=== PATIENT | male | born 1945 | race Caucasian/White ===

== ENCOUNTER 2019-07-25 16:28 | Inpatient (IN) | payer MEDICARE, MEDICAID, SELFPAY ==
[2019-07-25] VITALS (46 sets, daily range): BP systolic 102–130; BP diastolic 72–93; PULSE 91–144; RESP 7–32; TEMP 36.6–36.8; O2SAT 82–99; BMI 14.5
--- NOTE | 2019-07-25 16:33 | ED_ITS ---
Entered by Ruben King, acting as scribe for Tameka Slater HPI - SOB/Dyspnea General: Stated Complaint: WEAKNESS Time Seen by Provider: 07/25/19 16:32 Coding Level of Care Code ED First Helper for Paco Mosquera
--- NOTE | 2019-07-25 16:33 | W.ED.SOB ---
HPI - SOB/Dyspnea General: Stated Complaint: WEAKNESS Time Seen by Provider: 07/25/19 16:32 Coding Level of Care Code ED Web Solutions Architect for Paco Mosquera
--- NOTE | 2019-07-25 16:38 | ED_ITS ---
Entered by Ruben King, acting as scribe for Tameka Slater Documented by User: Tameka Slater 07/25/19 18:00 HPI - Fall General: Chief Complaint: Fall Stated Complaint: WEAKNESS Time Seen by Provider: 07/25/19 16:32 History of Present Illness: HPI Narrative: 74 yo male presents with fall. Pt states that he is short of breath. Family member states that pt isn't eating and has lost a lot of weight. Pt states that this all started on the 4th of this month. Pt states that he has abdomen pain that started about 2 weeks ago. Pt states that he has had vomiting and diarrhea. MD complaint: fall Place fall occurred: home Loss of consciousness: None Prolonged down time: no Associated symptoms-after fall: Reports abdominal pain and weakness; Denies chest pain, confusion, difficulty walking, headache(s), hematuria, neck pain or vertigo Review of Systems General: Reports: other (negative unless marked) Const: Denies: fever, chills, body aches, fatigue, malaise or diaphoresis Eyes: Denies: change in vision or blurry vision ENMT: Denies: throat pain, painful swallowing, hoarseness, ear pain, ear discharge, Change in hearing or nasal discharge Card: Denies: chest pain, palpitations, irregular heart rhythm, syncope, pre- syncope, shortness of breath on exertion or shortness of breath when lying down Resp: Reports: shortness of breath and wheezing; Denies: productive cough, non-productive cough, coughing up blood or chest co ngestion GI: Reports: abdominal pain : Denies: flank pain, difficulty urinating, painful urination, urinary frequency, urinary urgency, decreased urine ouput, urinary incontinence or blood in urine Musc: Denies: neck pain, back pain, extremity pain, extremity swelling, joint pain, joint swelling, joint warmth or joint stiffness Skin/Breast: Denies: rash, skin tenderness or yellow skin Neuro: Denies: headache, numbness in extremities, weakness in extremities, changes in sensation, lack of coordination, difficulty walking, dizziness, vertigo or confusion Endo: Denies: excessive thirst, tired all the time, cold intolerance, excessive sweating, flushing or hot flashes Osmani/Lymph: Denies: easy bruising, easy bleeding, petechiae or enlarged lymph nodes All/Imm: Denies: hives, throat swelling, tongue swelling, facial swelling or acute wheezing PFSH ED PFSH: Statuses (acute, chronic, etc) shown below reflect problem list status as previously entered and may not be historically accurate Medical History Afib (Acute) CAD (coronary artery disease) (Acute) CHF (congestive heart failure) (Acute) Heart valve disease (Acute) Hypertension (Acute) Peripheral arterial disease (Acute) Surgical History History of bilateral carotid endarterectomy (Acute) Hx of CABG (Acute) Family History (Updated 07/25/19 @ 19:36 by Manuel Roach MD) Other CAD (coronary artery disease) Cancer Diabetes Social History (Updated 07/25/19 @ 21:54 by Manuel Roach MD) Smoking and tobacco status: current every day smoker Alcohol intake: never Lives independently: Yes Housing: House Physical Exam Const: COMMON NORMALS: no apparent distress, oriented x3 and no limitations; negative for healthy appearing and negative for well nourished EXAM LIMITATIONS: no altered mental status GENERAL APPEARANCE: cooperative, well kempt and well developed ORIENTATION/CONSCIOUSNESS: Yes awake HENMT: COMMON NORMALS: normocephalic, head/scalp atraumatic, hearing grossly normal bilaterally, external ears normal, EAC's normal, external nose normal and moist oral mucous membranes HEAD & SCALP: normal to inspection, normocephalic and atraumatic FACE & SINUS: normal facial exam and face symmetric NOSE: external nose normal and nares normal EXTERNAL EAR: Yes external ears normal EXTERNAL AUDITORY CANAL: EAC's normal MOUTH: oral and palatal mucosa normal and tongue normal Eye: COMMON NORMALS: PERRL, EOMs intact bilaterally, conjunctivae normal and no scleral icterus GENERAL EYE: normal appearance of both eyes and normal light reflex CONJUNCTIVA: Yes conjunctivae normal SCLERA: sclerae normal CORNEA: Yes corneas normal PUPIL: Yes PERRL DIRECT OPHTHALMOSCOPY: Yes normal light reflex Neck/C-Spine: COMMON NORMALS: full ROM, no lymphadenopathy, supple, no meningeal signs and no JVD GENERAL: Yes normal visual inspection and Yes trachea midline CERVICAL SPINE: Yes cervical ROM normal Chest: COMMONS NORMALS: inspection of chest normal and palpation of chest normal Resp: COMMON NORMALS: normal respiratory effort, no retractions and clear to auscultation bilaterally EFFORT & INSPECTION: Yes able to speak in complete sentences AUSCULTATION: clear to auscultation bilaterally, rhonchi and wheezes Cardio: COMMON NORMALS: no JVD, regular rate, regular rhythm, S1 normal heart sound, S2 normal heart sound, no gallops, no clicks, no murmurs and no rub JUGULAR VENOUS DISTENTION: no JVD RATE: regular rate RHYTHM: regular rhythm HEART SOUNDS: S1 normal and S2 normal GI: COMMON NORMALS: soft to palpation, non-tender, no hepatosplenomegaly and no masses INSPECTION: Yes normal to inspection PALPATION: Yes soft and Yes no hepatosplenomegaly : COMMON NORMALS: Yes no CVA tenderness BLADDER/KIDNEY EXAM: Yes no CVA tenderness Back/Pelvis: COMMON NORMALS: no CVA tenderness, thoracic and lumbar spine normal to inspection, no thoracic nor lumbar tenderness and thoraco-lumbar ROM normal Extremity: COMMON NORMALS: normal to inspection, full ROM, normal capillary refill, no joint enlargement, no clubbing, cyanosis or edema and no calf tenderness Neuro: COMMON NORMALS: oriented x3, CN's II-XII intact bilaterally, moves all extremities, no focal motor deficits and no sensory deficits noted MENINGEAL SIGNS: Yes no meningeal signs Psych: COMMON NORMALS: mental status grossly normal, thought process normal, cooperative, affect normal, speech normal and activity/motor behavior normal APPEARANCE: Yes well kempt SPEECH: Yes normal speech THOUGHT PROCESS: normal thought process Skin: COMMON NORMALS: no rashes or lesions noted, skin turgor normal, no jaundice, no petechiae and no mottling GENERAL SKIN EXAM: no rashes or lesions noted and turgor normal Course Vital Signs: Vital signs: Vital Signs Temperature 98.2 F 07/25/19 22:05 Pulse Rate 93 07/26/19 02:00 Respiratory Rate 7 L 07/26/19 02:00 Blood Pressure 107/79 07/26/19 02:00 Pulse Oximetry 97 07/26/19 02:00 MDM - Fall MDM Narrative: Medical decision making narrative: Mr. James is a very nice 74-year-old male who comes in with shortness of breath, tachycardia and abdominal pain. Patient is being treated for his rapid A. fib and we will also have a CT performed of chest and pelvis to rule out pulmonary embolism. The patient agrees to further evaluation. Case to be turned over to Dr. Lou at change of shift. Lab Data: Attestation: I reviewed the patient's lab results. Labs: Lab Results 07/25/19 07/25/19 07/25/19 Range/Units 16:36 16:36 16:36 WBC 6.8 (4.0-10.0) 10^3/ uL RBC 4.16 (4.1-5.3) 10^6/u L Hgb 13.4 (11.7-16.6) g/dL Hct 40.4 L (42.0-52.0) % MCV 97.1 H (80-94) fL MCH 32.2 (28.0-34.0) pg MCHC 33.2 (30.0-36.0) g/dL RDW 15.6 H (12.1-15.1) % Plt Count 148 (130-400) 10^3/c mm MPV 11.6 H (7.4-10.4) fL Neut % (Auto) 72.7 % Lymph % (Auto) 11.7 % Burke % (Auto) 13.5 % Eos % (Auto) 1.2 % Baso % (Auto) 0.6 % Neut # (Auto) 5.0 (1.8-7.7) 10^3/u L Lymph # (Auto) 0.8 (0.8-4.8) 10^3/u L Burke # (Auto) 0.9 (0.2-0.9) 10^3/u L Eos # (Auto) 0.1 (0.0-0.8) 10^3/u L Baso # (Auto) 0.0 (0.0-0.1) 10^3/u L Nucleated RBC % (a uto) 0 % Nucleated RBCs # 0.0 /100WBC PT 12.00 (10.5-13.3) SECO NDS INR 0.86 (0.8-1.2) D-Dimer (0-0.59) ug/mIFE U Specimen Type ABG pH (7.35-7.45) ABG pCO2 (35-45) mmHg ABG pO2 (80.0-100.0) mmH g ABG HCO3 (22-26) mmol/L ABG Base Excess (-2.0-2.0) mmol/ L Malachi Test Hematocrit (42-52) % O2 Delivery Device FiO2 % Cad Intern ID Sodium 139 (136-145) mmol/L Potassium 3.8 (3.5-5.1) mmol/L Chloride 98 (98-107) mmol/L Carbon Dioxide 26 (22-29) mmol/L Anion Gap 18.8 (5-19) BUN 18 (8-23) mg/dL Creatinine 0.9 (0.7-1.2) mg/dL Glucose 126 H (74-106) mg/dL Lactic Acid (0.5-2.2) mmol/L Calcium 10.2 (8.5-10.5) mg/dL Total Bilirubin 3.1 H (0.15-1.2) mg/dL AST 77 H (0-40) U/L ALT 52 H (0-41) U/L Alkaline Phosphata se 510 H (40-130) IU/L Troponin T Baselin e (0-15) ng/mL Troponin T 120 Min gissel (0-15) ng/mL Delta Troponin T (0-10) ABS# NT-Pro-B Natriuret Pep 4224 H (0-125) pg/mL Total Protein 7.3 (6.6-8.7) g/dL Albumin 3.7 (3.5-5.2) g/dL Globulin 3.6 (1.3-4.6) g/dL Lipase 36 (13-60) U/L Influenza Type A A g (Negative) POC Influenza B Ag (Negative) 07/25/19 07/25/19 07/25/19 Range/Units 16:36 16:36 16:58 WBC (4.0-10.0) 10^3/ uL RBC (4.1-5.3) 10^6/u L Hgb (11.7-16.6) g/dL Hct (42.0-52.0) % MCV (80-94) fL MCH (28.0-34.0) pg MCHC (30.0-36.0) g/dL RDW (12.1-15.1) % Plt Count (130-400) 10^3/c mm MPV (7.4-10.4) fL Neut % (Auto) % Lymph % (Auto) % Burke % (Auto) % Eos % (Auto) % Baso % (Auto) % Neut # (Auto) (1.8-7.7) 10^3/u L Lymph # (Auto) (0.8-4.8) 10^3/u L Burke # (Auto) (0.2-0.9) 10^3/u L Eos # (Auto) (0.0-0.8) 10^3/u L Baso # (Auto) (0.0-0.1) 10^3/u L Nucleated RBC % (a uto) % Nucleated RBCs # /100WBC PT (10.5-13.3) SECO NDS INR (0.8-1.2) D-Dimer 5.10 H (0-0.59) ug/mIFE U Specimen Type Arterial ABG pH 7.59 H* (7.35-7.45) ABG pCO2 23.6 L (35-45) mmHg ABG pO2 96.8 (80.0-100.0) mmH g ABG HCO3 22.4 (22-26) mmol/L ABG Base Excess 2.1 H (-2.0-2.0) mmol/ L Malachi Test Pos Hematocrit 41.1 L (42-52) % O2 Delivery Device Room air FiO2 21.0 % Cad Intern ID monro Sodium (136-145) mmol/L Potassium (3.5-5.1) mmol/L Chloride (98-107) mmol/L Carbon Dioxide (22-29) mmol/L Anion Gap (5-19) BUN (8-23) mg/dL Creatinine (0.7-1.2) mg/dL Glucose (74-106) mg/dL Lactic Acid (0.5-2.2) mmol/L Calcium (8.5-10.5) mg/dL Total Bilirubin (0.15-1.2) mg/dL AST (0-40) U/L ALT (0-41) U/L Alkaline Phosphata se (40-130) IU/L Troponin T Baselin e 182 H* (0-15) ng/mL Troponin T 120 Min gissel (0-15) ng/mL Delta Troponin T (0-10) ABS# NT-Pro-B Natriuret Pep (0-125) pg/mL Total Protein (6.6-8.7) g/dL Albumin (3.5-5.2) g/dL Globulin (1.3-4.6) g/dL Lipase (13-60) U/L Influenza Type A A g (Negative) POC Influenza B Ag (Negative) 07/25/19 07/25/19 07/25/19 Range/Units 17:04 17:16 18:20 WBC (4.0-10.0) 10^3/ uL RBC (4.1-5.3) 10^6/u L Hgb (11.7-16.6) g/dL Hct (42.0-52.0) % MCV (80-94) fL MCH (28.0-34.0) pg MCHC (30.0-36.0) g/dL RDW (12.1-15.1) % Plt Count (130-400) 10^3/c mm MPV (7.4-10.4) fL Neut % (Auto) % Lymph % (Auto) % Burke % (Auto) % Eos % (Auto) % Baso % (Auto) % Neut # (Auto) (1.8-7.7) 10^3/u L Lymph # (Auto) (0.8-4.8) 10^3/u L Burke # (Auto) (0.2-0.9) 10^3/u L Eos # (Auto) (0.0-0.8) 10^3/u L Baso # (Auto) (0.0-0.1) 10^3/u L Nucleated RBC % (a uto) % Nucleated RBCs # /100WBC PT (10.5-13.3) SECO NDS INR (0.8-1.2) D-Dimer (0-0.59) ug/mIFE U Specimen Type ABG pH (7.35-7.45) ABG pCO2 (35-45) mmHg ABG pO2 (80.0-100.0) mmH g ABG HCO3 (22-26) mmol/L ABG Base Excess (-2.0-2.0) mmol/ L Malachi Test Hematocrit (42-52) % O2 Delivery Device FiO2 % Cad Intern ID Sodium (136-145) mmol/L Potassium (3.5-5.1) mmol/L Chloride (98-107) mmol/L Carbon Dioxide (22-29) mmol/L Anion Gap (5-19) BUN (8-23) mg/dL Creatinine (0.7-1.2) mg/dL Glucose (74-106) mg/dL Lactic Acid 2.0 (0.5-2.2) mmol/L Calcium (8.5-10.5) mg/dL Total Bilirubin (0.15-1.2) mg/dL AST (0-40) U/L ALT (0-41) U/L Alkaline Phosphata se (40-130) IU/L Troponin T Baselin e (0-15) ng/mL Troponin T 120 Min gissel 171.60 H (0-15) ng/mL Delta Troponin T -10.40 L (0-10) ABS# NT-Pro-B Natriuret Pep (0-125) pg/mL Total Protein (6.6-8.7) g/dL Albumin (3.5-5.2) g/dL Globulin (1.3-4.6) g/dL Lipase (13-60) U/L Influenza Type A A g Negative (Negative) POC Influenza B Ag Negative (Negative) EKG Data^: EKG 1: Attestation: I personally reviewed and interpreted this EKG as follows: EKG interpretation date: 07/25/19 EKG interpretation time: 17:22 Interpretation: Atrial flutter at 142 beats a minute, nonspecific ST-T wave changes, normal axis. Unchanged from previous Discharge Plan Discharge Patient Disposition: Admitted As Inpatient Admit Provider: Manuel Roach Discharge Date/Time: 07/25/19 21:43 Sign Out Sign Out Data: Patient Sign Out occurred on 07/25/19 at 18:29. Patient's care was discussed, and care was transferred from to Breezy Lou DO. Coding Level of Care Code ED Ecological Economist for Chg Fwd Exam Problem Focused Documented by User: Breezy Lou, 07/26/19 04:19 HPI - Fall General: Chief Complaint: Fall Stated Complaint: WEAKNESS Time Seen by Provider: 07/25/19 16:32 [facility] ED PFSH: Statuses (acute, chronic, etc) shown below reflect problem list status as previously entered and may not be historically accurate Medical History Afib (Acute) CAD (coronary artery disease) (Acute) CHF (congestive heart failure) (Acute) Heart valve disease (Acute) Hypertension (Acute) Peripheral arterial disease (Acute) Surgical History History of bilateral carotid endarterectomy (Acute) Hx of CABG (Acute) Family History (Updated 07/25/19 @ 19:36 by Manuel Roach MD) Other CAD (coronary artery disease) Cancer Diabetes Social History (Updated 07/25/19 @ 21:54 by Manuel Roach MD) Smoking and tobacco status: current every day smoker Alcohol intake: never Lives independently: Yes Housing: House Course ED course: 74-year-old male checked out to me by Dr. Watson. He continues to have elevated heart rates despite multiple doses of diltiazem, with a diltiazem drip. 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 He will go to the ICU given his heart rate and need for antiarrhythmic drip. Vital Signs: Vital signs: Vital Signs Temperature 98.2 F 07/25/19 22:05 Pulse Rate 93 07/26/19 02:00 Respiratory Rate 7 L 07/26/19 02:00 Blood Pressure 107/79 07/26/19 02:00 Pulse Oximetry 97 07/26/19 02:00 MDM - Fall Lab Data: Labs: Lab Results 07/25/19 07/25/19 07/25/19 Range/Units 16:36 16:36 16:36 WBC 6.8 (4.0-10.0) 10^3/ uL RBC 4.16 (4.1-5.3) 10^6/u L Hgb 13.4 (11.7-16.6) g/dL Hct 40.4 L (42.0-52.0) % MCV 97.1 H (80-94) fL MCH 32.2 (28.0-34.0) pg MCHC 33.2 (30.0-36.0) g/dL RDW 15.6 H (12.1-15.1) % Plt Count 148 (130-400) 10^3/c mm MPV 11.6 H (7.4-10.4) fL Neut % (Auto) 72.7 % Lymph % (Auto) 11.7 % Burke % (Auto) 13.5 % Eos % (Auto) 1.2 % Baso % (Auto) 0.6 % Neut # (Auto) 5.0 (1.8-7.7) 10^3/u L Lymph # (Auto) 0.8 (0.8-4.8) 10^3/u L Burke # (Auto) 0.9 (0.2-0.9) 10^3/u L Eos # (Auto) 0.1 (0.0-0.8) 10^3/u L Baso # (Auto) 0.0 (0.0-0.1) 10^3/u L Nucleated RBC % (a uto) 0 % Nucleated RBCs # 0.0 /100WBC PT 12.00 (10.5-13.3) SECO NDS INR 0.86 (0.8-1.2) D-Dimer (0-0.59) ug/mIFE U Specimen Type ABG pH (7.35-7.45) ABG pCO2 (35-45) mmHg ABG pO2 (80.0-100.0) mmH g ABG HCO3 (22-26) mmol/L ABG Base Excess (-2.0-2.0) mmol/ L Malachi Test Hematocrit (42-52) % O2 Delivery Device FiO2 % Cad Intern ID Sodium 139 (136-145) mmol/L Potassium 3.8 (3.5-5.1) mmol/L Chloride 98 (98-107) mmol/L Carbon Dioxide 26 (22-29) mmol/L Anion Gap 18.8 (5-19) BUN 18 (8-23) mg/dL Creatinine 0.9 (0.7-1.2) mg/dL Glucose 126 H (74-106) mg/dL Lactic Acid (0.5-2.2) mmol/L Calcium 10.2 (8.5-10.5) mg/dL Total Bilirubin 3.1 H (0.15-1.2) mg/dL AST 77 H (0-40) U/L ALT 52 H (0-41) U/L Alkaline Phosphata se 510 H (40-130) IU/L Troponin T Baselin e (0-15) ng/mL Troponin T 120 Min gissel (0-15) ng/mL Delta Troponin T (0-10) ABS# NT-Pro-B Natriuret Pep 4224 H (0-125) pg/mL Total Protein 7.3 (6.6-8.7) g/dL Albumin 3.7 (3.5-5.2) g/dL Globulin 3.6 (1.3-4.6) g/dL Lipase 36 (13-60) U/L Influenza Type A A g (Negative) POC Influenza B Ag (Negative) 07/25/19 07/25/19 07/25/19 Range/Units 16:36 16:36 16:58 WBC (4.0-10.0) 10^3/ uL RBC (4.1-5.3) 10^6/u L Hgb (11.7-16.6) g/dL Hct (42.0-52.0) % MCV (80-94) fL MCH (28.0-34.0) pg MCHC (30.0-36.0) g/dL RDW (12.1-15.1) % Plt Count (130-400) 10^3/c mm MPV (7.4-10.4) fL Neut % (Auto) % Lymph % (Auto) % Burke % (Auto) % Eos % (Auto) % Baso % (Auto) % Neut # (Auto) (1.8-7.7) 10^3/u L Lymph # (Auto) (0.8-4.8) 10^3/u L Burke # (Auto) (0.2-0.9) 10^3/u L Eos # (Auto) (0.0-0.8) 10^3/u L Baso # (Auto) (0.0-0.1) 10^3/u L Nucleated RBC % (a uto) % Nucleated RBCs # /100WBC PT (10.5-13.3) SECO NDS INR (0.8-1.2) D-Dimer 5.10 H (0-0.59) ug/mIFE U Specimen Type Arterial ABG pH 7.59 H* (7.35-7.45) ABG pCO2 23.6 L (35-45) mmHg ABG pO2 96.8 (80.0-100.0) mmH g ABG HCO3 22.4 (22-26) mmol/L ABG Base Excess 2.1 H (-2.0-2.0) mmol/ L Malachi Test Pos Hematocrit 41.1 L (42-52) % O2 Delivery Device Room air FiO2 21.0 % Cad Intern ID monro Sodium (136-145) mmol/L Potassium (3.5-5.1) mmol/L Chloride (98-107) mmol/L Carbon Dioxide (22-29) mmol/L Anion Gap (5-19) BUN (8-23) mg/dL Creatinine (0.7-1.2) mg/dL Glucose (74-106) mg/dL Lactic Acid (0.5-2.2) mmol/L Calcium (8.5-10.5) mg/dL Total Bilirubin (0.15-1.2) mg/dL AST (0-40) U/L ALT (0-41) U/L Alkaline Phosphata se (40-130) IU/L Troponin T Baselin e 182 H* (0-15) ng/mL Troponin T 120 Min gissel (0-15) ng/mL Delta Troponin T (0-10) ABS# NT-Pro-B Natriuret Pep (0-125) pg/mL Total Protein (6.6-8.7) g/dL Albumin (3.5-5.2) g/dL Globulin (1.3-4.6) g/dL Lipase (13-60) U/L Influenza Type A A g (Negative) POC Influenza B Ag (Negative) 07/25/19 07/25/19 07/25/19 Range/Units 17:04 17:16 18:20 WBC (4.0-10.0) 10^3/ uL RBC (4.1-5.3) 10^6/u L Hgb (11.7-16.6) g/dL Hct (42.0-52.0) % MCV (80-94) fL MCH (28.0-34.0) pg MCHC (30.0-36.0) g/dL RDW (12.1-15.1) % Plt Count (130-400) 10^3/c mm MPV (7.4-10.4) fL Neut % (Auto) % Lymph % (Auto) % Burke % (Auto) % Eos % (Auto) % Baso % (Auto) % Neut # (Auto) (1.8-7.7) 10^3/u L Lymph # (Auto) (0.8-4.8) 10^3/u L Burke # (Auto) (0.2-0.9) 10^3/u L Eos # (Auto) (0.0-0.8) 10^3/u L Baso # (Auto) (0.0-0.1) 10^3/u L Nucleated RBC % (a uto) % Nucleated RBCs # /100WBC PT (10.5-13.3) SECO NDS INR (0.8-1.2) D-Dimer (0-0.59) ug/mIFE U Specimen Type ABG pH (7.35-7.45) ABG pCO2 (35-45) mmHg ABG pO2 (80.0-100.0) mmH g ABG HCO3 (22-26) mmol/L ABG Base Excess (-2.0-2.0) mmol/ L Malachi Test Hematocrit (42-52) % O2 Delivery Device FiO2 % Cad Intern ID Sodium (136-145) mmol/L Potassium (3.5-5.1) mmol/L Chloride (98-107) mmol/L Carbon Dioxide (22-29) mmol/L Anion Gap (5-19) BUN (8-23) mg/dL Creatinine (0.7-1.2) mg/dL Glucose (74-106) mg/dL Lactic Acid 2.0 (0.5-2.2) mmol/L Calcium (8.5-10.5) mg/dL Total Bilirubin (0.15-1.2) mg/dL AST (0-40) U/L ALT (0-41) U/L Alkaline Phosphata se (40-130) IU/L Troponin T Baselin e (0-15) ng/mL Troponin T 120 Min gissel 171.60 H (0-15) ng/mL Delta Troponin T -10.40 L (0-10) ABS# NT-Pro-B Natriuret Pep (0-125) pg/mL Total Protein (6.6-8.7) g/dL Albumin (3.5-5.2) g/dL Globulin (1.3-4.6) g/dL Lipase (13-60) U/L Influenza Type A A g Negative (Negative) POC Influenza B Ag Negative (Negative) Discharge Plan Discharge Patient Disposition: Admitted As Inpatient Admit Provider: Manuel Roach Discharge Date/Time: 07/25/19 21:43 Sign Out Sign Out Data: Patient Sign Out occurred on 07/25/19 at 18:29. Patient's care was discussed, and care was transferred from to Breezy Lou DO. Coding Level of Care Code ED Ecological Economist for Chg Fwd Exam Problem Focused The documentation recorded by the Fernando ortega Kialy, accurately reflects the service I personally performed and the decisions made by Nohemy alejo Eli N Jul 25, 2019 16:28
--- NOTE | 2019-07-25 16:42 | XRR_ITS ---
PROCEDURE INFORMATION: Exam: XR Chest, 1 View Exam date and time: 07/25/2019 4:58 PM Age: 74 years old Clinical indication: Prior surgery; Surgery date: 6+ months; Surgery type: Cabg, valve replacement; Patient HX: Weakness xseveral days, PT is a current smoker; Additional info: Cough TECHNIQUE: Imaging protocol: XR of the chest Views: 1 view. COMPARISON: CR Chest 1 [place] [id number] 07/08/2018 11:58 AM FINDINGS: Lungs: Lungs are severely hyperinflated in keeping with COPD. No new infiltrate is identified. Pleural space: There it be small pleural effusions but these are smaller than on 07/08/2018. Heart/Mediastinum: There is what appears to be a soft tissue mass in the right paratracheal region, however correlation with today's CT scan of the chest shows that this is likely artifact created by superficial soft tissues and the suprasternal notch as there is no mass in this location on the CT scan. There is mild cardiomegaly. There are changes of coronary bypass surgery. Bones/joints: Unremarkable. XR/XR chest 1V portable [id number] IMPRESSION: 1. Severe COPD 2. Decrease in pleural effusions compared with 07/08/2018
--- NOTE | 2019-07-25 16:44 | ECG_ITS ---
Measurements Intervals [place] Rate: 142 P: [place]: 0 QRS: 88 QRSD: 102 T: 0 QT: 208 QTc: 320 ATRIAL FLUTTER/TACHYCARDIA WITH RAPID VENTRICULAR RESPONSE VOLTAGE CRITERIA FOR LVH [MEETS CRITERIA IN ONE OF: R(aVL), S(V1), R(V5), R (V5/V6)+S(V1)] ST DEVIATION AND MODERATE T-WAVE ABNORMALITY, CONSIDER LATERAL ISCHEMIA [-0.1+ mV T WAVE IN I/aVL/V5/V6] INTERPRETATION BASED ON A DEFAULT AGE OF 40 YEARS Compared to ECG 07/08/2018 14:51:24 Left ventricular hypertrophy now present Supraventricular tachycardia no longer present T-wave abnormality still present Possible ischemia still present Electronically Signed On 07-25-2019 18:54:13 EMERGENCY PHYSICIAN by Manuel Haynes M.D. [email or web address]
[2019-07-25 16:57] LABS: Basophils % 0.6 %; Eosinophils # 0.1 10^3/uL (0.0-0.8); Eosinophils % 1.2 %; Hematocrit 40.4 % (42.0-52.0); Hemoglobin 13.4 g/dL (11.7-16.6); Lymphocytes # 0.8 10^3/uL (0.8-4.8); Lymphocytes % 11.7 %; Mean Corpuscular HGB Conc 33.2 g/dL (30.0-36.0); Mean Corpuscular Hemoglobin 32.2 pg (28.0-34.0); Mean Corpuscular Volume 97.1 fL (80-94); Mean Platelet Volume 11.6 fL (7.4-10.4); Monocytes # 0.9 10^3/uL (0.2-0.9); Monocytes % 13.5 %; Neutrophils % 72.7 %; Nucleated Red Blood Cells % 0 %; Platelet Count 148 10^3/cmm (130-400); Red Blood Count 4.16 10^6/uL (4.1-5.3); Red Cell Distribution Width 15.6 % (12.1-15.1); White Blood Count 6.8 10^3/uL (4.0-10.0)
[2019-07-25] MEDS: ondansetron 2 mg/ML SDV 2 mL 4 MG IVP (16:59)
[2019-07-25] MEDS: sodium chloride 0.9% 1,000 ML 100 ML IV (17:00)
[2019-07-25] MEDS: ipratropium-albuterol 3 mL Neb 9 ML INHALATION (17:06)
[2019-07-25 17:07] LABS: INR 0.86 (0.8-1.2)
--- NOTE | 2019-07-25 17:11 | PC.NURSE ---
RT at bedside providing treatments and collecting ABG
[2019-07-25 17:12] LABS: ABG PCO2 23.6 mmHg (35-45); Arterial Blood Gas Hematocrit 41.1 % (42-52); Base Excess ABG 2.1 mmol/L (-2.0-2.0); Blood Gas Allen Test Pos; Blood Gas Sample Type Arterial; HCO3 ABG 22.4 mmol/L (22-26); Oxygen Device ROOM AIR; PO2 ABG 96.8 mmHg (80.0-100.0)
[2019-07-25 17:13] LABS: ABG PH Result 7.59 (7.35-7.45)
[2019-07-25 17:18] LABS: Troponin(5th) Baseline 182 ng/mL (0-15)
[2019-07-25 17:19] LABS: Alanine Aminotransferase 52 U/L (0-41); Albumin Level 3.7 g/dL (3.5-5.2); Alkaline Phosphatase 510 IU/L (40-130); Anion Gap 18.8 (5-19); Aspartate Amino Transferase 77 U/L (0-40); Blood Urea Nitrogen 18 mg/dL (8-23); Calcium 10.2 mg/dL (8.5-10.5); Carbon Dioxide 26 mmol/L (22-29); Chloride 98 mmol/L (98-107); Globulin 3.6 g/dL (1.3-4.6); Glucose 126 mg/dL (74-106); Lipase 36 U/L (13-60); NT Pro B Type Natriuretic Pept 4224 pg/mL (0-125); Potassium 3.8 mmol/L (3.5-5.1); Sodium 139 mmol/L (136-145); Total Bilirubin 3.1 mg/dL (0.15-1.2); Total Protein 7.3 g/dL (6.6-8.7)
--- NOTE | 2019-07-25 17:24 | CTR_ITS ---
PROCEDURE INFORMATION: Exam: CT Angiography Chest With Contrast Exam date and time: 07/25/2019 5:27 PM Age: 74 years old Clinical indication: Abdominal pain; Acute; Chest pain; Type not specified; Prior surgery; Surgery date: 6+ months; Surgery type: Cabg, valve replacement; Additional info: Chest pain/sob TECHNIQUE: Imaging protocol: Computed tomographic angiography of the chest with intravenous contrast. 3D rendering: MIP and/or 3D reconstructed images were created by the technologist. Total DLP: 1088.91 mGy-cm Radiation optimization: All CT scans at this facility use at least one of these dose optimization techniques: automated exposure control; mA and/or kV adjustment per patient size (includes targeted exams where dose is matched to clinical indication); or iterative reconstruction. Contrast material: OMNI 350; Contrast volume: 95 ml; Contrast route: 18G; COMPARISON: CT chest w con* [id number] 07/02/2018 2:40 PM FINDINGS: Pulmonary arteries: There is no evidence of filling defects within the pulmonary arterial circulation to suggest pulmonary embolism. Aorta: Atherosclerotic calcifications are seen in the aortic arch without evidence for aneurysm. The aorta is not well opacified on this examination as this was done as a pulmonary angiogram study. Lungs: There is centrilobular and extensive paraseptal emphysema with an apical predominance not significantly changed from 07/02/2018. There is some mild dependent atelectasis at the left lung base and also some scarring in the lingula. There are 2 left upper lobe nonspecific nodules measuring 4 and 6 mm not significantly changed from 07/02/2018. There are 2 right upper lobe nodules measuring around 3 mm each and 5 peripheral right lower lobe nodules measuring around 4 mm which are not seen on the previous examination, probably due to the presence of atelectasis and other pathology which may have obscured them. There also two 4 mm sized nodules in the right middle lobe. While these are likely due to granulomatous disease, given the findings on the abdominal CT scan reported below one could not exclude metastatic lesions. Further evaluation or short-term follow-up should be based on the results of evaluation of the patient's abdominal pathology. There is some right basilar atelectasis and ground-glass opacity which is improved compared with 07/02/2018. Pleural space: There is a small right pleural effusion. There are nonspecific calcified pleural plaques anteriorly on the left not changed from previous. Heart: Sternotomy wires and mediastinal surgical clips are present, consistent with previous coronary arterial bypass grafting. The heart is moderately enlarged. There is also left atrial enlargement. There are findings of TAVR. Lymph nodes: Unremarkable. No enlarged lymph nodes. Bones/joints: Unremarkable. No acute fracture. Soft tissues: Unremarkable. IMPRESSION: 1. No evidence of pulmonary embolism 2. Severe COPD 3. Bilateral pulmonary nodules which are unchanged on the left and indeterminate on the right. Further evaluation or short-term follow-up should be based on the results of evaluation of the abdominal pathology. 4. Cardiomegaly with left atrial enlargement not significantly changed 5. Small bilateral pleural effusions more on the right than on the left 6. Mild atelectasis and ground-glass opacity in the dependent portions of the right lower lobe improved compared with previous PROCEDURE INFORMATION: Exam: CT Abdomen And Pelvis With Contrast Exam date and time: 07/25/2019 5:27 PM Age: 74 years old Clinical indication: Abdominal pain; Acute; Chest pain; Type not specified; Prior surgery; Surgery date: 6+ months; Surgery type: Cabg, valve replacement; Additional info: Chest pain/sob TECHNIQUE: Imaging protocol: Computed tomography of the abdomen and pelvis with intravenous contrast. Total DLP: 1088.91 mGy-cm Radiation optimization: All CT scans at this facility use at least one of these dose optimization techniques: automated exposure control; mA and/or kV adjustment per patient size (includes targeted exams where dose is matched to clinical indication); or iterative reconstruction. Contrast material: OMNI 350; Contrast volume: 95 ml; Contrast route: 18G; COMPARISON: CT chest w con* [id number] 07/02/2018 2:40 PM FINDINGS: Liver: There are numerous hepatic masses throughout all segments of the liver measuring up to 3 cm in size, highly suspicious for hepatic metastasis. These masses are new in the portions of the liver that were seen on the previous examination. Gallbladder and bile ducts: There is some mild pericolic cystic fluid but the gallbladder is otherwise unremarkable. Pancreas: There is a 1.5 cm sized hypoenhancing mass in the tail of the pancreas which is not present on the previous examination and is suspicious for pancreatic malignancy. Spleen: The spleen is normal. Adrenals: The adrenal glands are normal. Kidneys and ureters: There is some focal scarring in the lower pole right kidney. There are multiple simple cysts in the left kidney measuring up to 1.4 cm. Stomach and bowel: Unremarkable. No obstruction. No mucosal thickening. Appendix: Not identified Intraperitoneal space: There is some mild ascites. Vasculature: There are advanced atherosclerotic changes in the abdominal aorta with a 3.6 cm sized infrarenal abdominal aortic aneurysm with some mural thrombus in its posterior portion. There is also a metallic stent in the right common iliac artery. Lymph nodes: Unremarkable. No enlarged lymph nodes. Bladder: Unremarkable as visualized. Reproductive: The prostate demonstrates moderate nonspecific enlargement. The seminal vesicles are normal. Bones/joints: There are mild degenerative changes in the lumbar spine. Soft tissues: Unremarkable. CT/CT angio chest w abd pel w con IMPRESSION: 1. Findings are highly suspicious for hepatic metastasis. 2. Pancreatic mass worrisome for pancreatic malignancy. Radiation Dose CTDIVOL = (mGy): DLP = 1088.91~1088.91 (mGy-cm)
[2019-07-25] MEDS: sodium chloride 0.9% 1,496.85 ML 1496.9 ML IV (17:25)
[2019-07-25] MEDS: iohexol 350 mg/mL 100 mL Btl IV (17:31)
--- NOTE | 2019-07-25 17:32 | PC.NURSE ---
To CT via stretcher
[2019-07-25 17:57] LABS: Influenza A by IFA Negative (Negative); Influenza B by IFA Negative (Negative)
--- NOTE | 2019-07-25 18:34 | PC.NURSE ---
Patient unable to urinate at this time.
--- NOTE | 2019-07-25 18:44 | ECG_ITS ---
Measurements Intervals [place] Rate: 139 P: [place]: 0 QRS: 90 QRSD: 105 T: 268 QT: 304 QTc: 463 ATRIAL FLUTTER/TACHYCARDIA WITH RAPID VENTRICULAR RESPONSE VOLTAGE CRITERIA FOR LVH [MEETS CRITERIA IN ONE OF: R(aVL), S(V1), R(V5), R(V5 (V5/V6)+S(V1)] NONSPECIFIC ST & T-WAVE ABNORMALITY Compared to ECG 07/25/2019 17:22:42 Possible ischemia no longer present T-wave abnormality still present Electronically Signed On 07-26-2019 17:52:23 SEMICONDUCTOR LAB TECHNICIAN by Manuel Haynes M.D. [id number]
--- NOTE | 2019-07-25 19:35 | P.HP_ITS ---
Providers/Chief Complaint Primary Care Provider: Horacio Bains DO Chief Complaint: PANCREATIC MASS History of Present Illness J Luis James is a 74 year old male who carries diagnosis of atrial fibrillation, aortic valve replacement, came in with a chief complaint of generalized weakness. Patient is stating that for last 3 to 4 months he has not been able to eat well, he was feeling nauseous on every attempt to eat, he decrease his p.o. intake because of this discomfort, he has lost significant weight, he has been becoming weaker and depressed, he has cut himself from his friends as well, he is smoking on and off these days, he has not noticed any vomiting, dysuria or diarrhea or night sweats. He lives alone and is struggling to carry his daily activities on his own, recently he has been using support of velazquez to walk around in his house. His friend Lavinia who is his caregiver as well is stating that around Bernadette time he was able to eat without any issues since then his health has been declining, he is more depressed, isolated and is losing weight. He has not taken his medication in the last 2 to 3 months. Diagnostics in ER showed normal hemodynamics but unfortunately CT scan chest abdomen pelvis showed pancreatic mass 1.5 cm with possible liver metastases up to 3 cm, AAA 3.6 cm, bilateral lung nodules and bilateral pleural effusion Of note he had pleural effusion drained in June 2018 which was nonmalignant Injury 2018 his barium swallow showed dysphagia and he was put on mechanical soft diet at that time TSH 3.8, BNP 4000, bilirubin 3.1, transaminases are high, CTA did not show any PE, delta troponin negative A. fib RVR heart rate 140s, he was started on Cardizem drip Review of Systems Const: Reports: chills, body aches, change in appetite, change in weight, fatigue and malaise; Denies: fever or night sweats Eyes: Denies: change in vision ENMT: Denies: throat pain or painful swallowing Card: Denies: chest pain or edema Resp: Denies: shortness of breath GI: Reports: abdominal pain and nausea; Denies: vomiting : Denies: flank pain Musc: Denies: neck pain Skin/Breast: Denies: rash Neuro: Denies: headache Psych: Reports: depression; Denies: anxiety Endo: Denies: excessive urination Osmani/Lymph: Denies: easy bruising All/Imm: Denies: hives Medications/Allergies Home Medications Medication Instructions Recorded Confirmed Last Taken Type amiodarone 200 mg PO DAILY 07/25/19 07/25/19 Unknown History atorvastatin 20 mg PO DAILY 07/25/19 07/25/19 Unknown History furosemide 40 mg PO DAILY 07/25/19 07/25/19 Unknown History metoprolol tartrate 25 mg PO DAILY 07/25/19 07/25/19 Unknown History Allergies Allergy/AdvReac Type Severity Reaction Status Date / Time clopidogrel [From Plavix] Allergy ALGY-Redness Verified 07/25/19 16:38 of Skin Penicillins Allergy ALGY-Rash Verified 07/25/19 16:38 PFSH Acute PFSH: Statuses (acute, chronic, etc) shown below reflect problem list status as previously entered and may not be historically accurate Medical History Afib (Acute) CAD (coronary artery disease) (Acute) CHF (congestive heart failure) (Acute) Heart valve disease (Acute) Hypertension (Acute) Peripheral arterial disease (Acute) Surgical History History of bilateral carotid endarterectomy (Acute) Hx of CABG (Acute) Family History (Updated 07/25/19 @ 19:36 by Manuel Roach MD) Other CAD (coronary artery disease) Cancer Diabetes Social History (Updated 07/25/19 @ 21:54 by Manuel Roach MD) Smoking and tobacco status: current every day smoker Alcohol intake: never Lives independently: Yes Housing: House Vitals/I&O/Wt Last Vital Signs Temp 97.9 F 07/25/19 16:30 Pulse 142 H 07/25/19 17:20 Resp 24 H 07/25/19 17:06 BP 115/93 07/25/19 16:30 Pulse Ox 98 07/25/19 17:06 07/25/19 07/25/19 07/25/19 06:59 14:59 22:59 Intake Total 5.000 / 5.000 Balance 5.000 / 5.000 Weight last 48 hrs Weight 49.895 kg Physical Exam Narrative: EXAM NARRATIVE: Extremely cachectic and dehydrated appearance Unkempt appearance, very frail, No active signs of heart failure Variable S1-S2, A. fib RVR, no JVD or lower extremity edema Abdomen shows mild tenderness around epigastric and right upper quadrant area, palpable liver, scaphoid abdomen, bowel sounds sluggish Neurologically nonfocal exam His mood is sad and depressed without suicidal plans but positive suicidal tho ughts in the past No active homicidal or suicidal ideation Skin does not show any signs of ischemia gangrene or ulcer Has multiple body tattoos Lungs are clear to auscultation EOMI, PERRLA Data : 07/25/19 16:36 07/25/19 16:36 Micro: Microbiology 07/25/19 17:16 Blood Culture - Preliminary Blood SPECIMEN COLLECTED 07/25/19 17:10 Blood Culture - Preliminary Blood SPECIMEN COLLECTED A&P Assessment and plan (1) Pancreatic mass: Status: Acute Code(s): K86.89 - Other specified diseases of pancreas (2) Liver mass: Status: Acute Code(s): R16.0 - Hepatomegaly, not elsewhere classified (3) Atrial fibrillation with RVR: Status: Acute Code(s): I48.91 - Unspecified atrial fibrillation (4) Subtherapeutic anticoagulation: Status: Acute Code(s): Z51.81 - Encounter for therapeutic drug level monitoring; Z79.01 - alf (current) use of anticoagulants (5) Smoker: Status: Acute Code(s): F17.200 - Nicotine dependence, unspecified, uncomplicated (6) Abnormal liver enzymes: Status: Acute Code(s): R74.8 - Abnormal levels of other serum enzymes (7) Depression: Status: Acute Code(s): F32.9 - Major depressive disorder, single episode, unspecified Additional A&P Information A. fib RVR Currently on Cardizem drip He is subtherapeutic anticoagulated Patient is stating that his Coumadin was stopped and he was put on high-dose aspirin, but he is not able to tell me why it was switched, I will anticoagulate him with full dose Lovenox for now Considering his active generalized weakness and high risk for falls please readdress anticoagulation before discharge No PE found on CTA chest He has not been taking his metoprolol or amiodarone for last couple of months, I would resume his AV demar blocking agents with amiodarone as he is currently on high dose of Cardizem drip Generalized weakness with extensive weight loss Patient has cachectic appearance, dysphagia Active smoker, drinks 2-[address] scan is showing pancreatic mass with possible liver metastases has abnormal liver enzymes with high bilirubin Will get MRCP in the morning, no active vomiting but he is feeling nauseous I will try to put him on mechanical soft diet and see if he tolerates diet, Please consult oncology in the morning, no urgent indication AAA 3.6 cm: He is an active smoker Ultrasound every 6 months High risk for bleed with active anticoagulation Continue beta-radha Abnormal liver enzymes secondary to bili obstruction and likely hepatic metastases Likely secondary to pancreatic mass Showing abnormal transaminases with high bilirubin MRCP in the morning Social dynamics: Patient lives alone, his friend Lavinia takes care of him and takes him 2 different doctors appointments, she prefers to be notified in case of emergency and transfer her phone number is [phone] Next of kin daughter her name is Josey she is in [place] phone number [phone] Active smoker: He has been counseled extensively, DVT prophylaxis: Currently on Lovenox full dose GI prophylaxis: Proton Full code Patient wants a trial of CPR with intubation Attestations Medical Necessity Statement*: Anticipating stay to cross more than 2 midnights for new pancreatic mass and abnormal liver enzymes Time Spent in Patient Care: (>than 50% of time spent in counselling and/or direct pt care on unit) . 60 Coding Level of Care Code Acute Endoscopy Support Specialist for Chg Fwd Diagnoses Pancreatic mass K86.89 Liver mass R16.0 Atrial fibrillation with RVR I48.91 Subtherapeutic anticoagulation Z51.81; Z79.01 Smoker F17.200 Abnormal liver enzymes R74.8 Depression F32.9
[2019-07-25] MEDS: morphine 4 mg/mL SDV 1 mL IVP ×2 (19:47→23:33)
[2019-07-25] MEDS: enoxaparin 60 mg/0.6 mL Syringe 50 MG SUBCUT (22:40)
--- NOTE | 2019-07-25 22:44 | ECG_ITS ---
Measurements Intervals [place] Rate: 95 P: DC: 0 QRS: 91 QRSD: 110 T: 255 QT: 397 QTc: 501 ATRIAL FLUTTER/TACHYCARDIA BORDERLINE RIGHT AXIS DEVIATION [QRS AXIS > 90] MINIMAL VOLTAGE CRITERIA FOR LVH, CONSIDER NORMAL VARIANT [MEETS CRITERIA IN ONE O OF: R(aVL), S(V1), R(V5), R(V5/V6)+S(V1)] SEPTAL MYOCARDIAL INFARCTION [40+ ms Q WAVE IN V1/V2], OF INDETERMINATE AGE MODERATE T-WAVE ABNORMALITY, CONSIDER ANTERIOR ISCHEMIA [-0.1+ mV T WAVE IN V3/V4] Compared to ECG 07/25/2019 17:22:42 Myocardial infarct finding now present T-wave abnormality still present Possible ischemia still present Electronically Signed On 07-26-2019 17:52:49 MILL ROLL OPERATOR by Manuel Haynes M.D. [id number]
[2019-07-25 23:22] LABS: Troponin 5 6HR 139.2 ng/L (0-15); Troponin 5 6HR Delta -42.8 ng/L (0-12)
[2019-07-26] VITALS (23 sets, daily range): BP systolic 88–125; BP diastolic 61–85; PULSE 62–124; RESP 7–23; TEMP 36.4–36.8; O2SAT 92–100
[2019-07-26] MEDS: sodium chloride 0.9% 1,000 ML 30 ML IV (01:37)
[2019-07-26 04:42] LABS: Hematocrit 39.2 % (42.0-52.0); Hemoglobin 12.8 g/dL (11.7-16.6); Lymphocytes # 0.4 10^3/uL (0.8-4.8); Lymphocytes % 9.4 %; Mean Corpuscular HGB Conc 32.7 g/dL (30.0-36.0); Mean Corpuscular Hemoglobin 33.1 pg (28.0-34.0); Mean Corpuscular Volume 101.3 fL (80-94); Mean Platelet Volume 11.9 fL (7.4-10.4); Monocytes # 0.1 10^3/uL (0.2-0.9); Monocytes % 2.1 %; Neutrophils # 3.3 10^3/uL (1.8-7.7); Neutrophils % 87.7 %; Nucleated Red Blood Cells % 0 %; Platelet Count 146 10^3/cmm (130-400); Red Blood Count 3.87 10^6/uL (4.1-5.3); Red Cell Distribution Width 15.9 % (12.1-15.1); White Blood Count 3.7 10^3/uL (4.0-10.0)
[2019-07-26 05:02] LABS: Alanine Aminotransferase 45 U/L (0-41); Albumin Level 3.7 g/dL (3.5-5.2); Alkaline Phosphatase 450 IU/L (40-130); Anion Gap 16.5 (5-19); Aspartate Amino Transferase 61 U/L (0-40); Blood Urea Nitrogen 13 mg/dL (8-23); Calcium 9.8 mg/dL (8.5-10.5); Carbon Dioxide 25 mmol/L (22-29); Chloride 103 mmol/L (98-107); Globulin 3.3 g/dL (1.3-4.6); Glucose 168 mg/dL (74-106); Potassium 4.5 mmol/L (3.5-5.1); Sodium 140 mmol/L (136-145); Total Bilirubin 2.7 mg/dL (0.15-1.2)
[2019-07-26] MEDS: morphine 4 mg/mL SDV 1 mL IVP (05:14)
--- NOTE | 2019-07-26 07:00 | MR_ITS ---
WS: [id number] MRCP (MAGNETIC RESONANCE CHOLANGIOPANCREATOGRAPHY) HISTORY: liver mass COMPARISON: CT 07/25/2019. TECHNIQUE: Multiple sequences are performed to evaluate the intra and extrahepatic ducts. This examination has been tailored to the extrahepatic and intrahepatic ducts. Common bile duct is no rmal size at 6.6 mm. The distal common bile duct is difficult to see due to motion and breathing. Gal lbladder is well distended. No stones are identified. Liver is mildly enlarged extending over a lengt h of 17.4 cm. There are numerous masses scattered throughout the liver which are hyperintense as comp ared to the liver parenchyma on this unenhanced study. Consistent with metastatic disease as seen on the prior CT. Largest mass measures 2.5 cm. Small RIGHT pleural effusion. Marked dilatation of the stomach with food products. The pancreatic christiano l mass as described on CT is not well visualized by MRI due to the protocol. There is a mass which is rounded and of decreased attenuation measuring 1.9 cm in the pancreatic tail. Further detail is limi david. LEFT renal cysts. Lobulated cyst measures 1.5 cm from the upper pole. Abdominal aortic aneurysm at 3.3 cm. Partial thrombus along the posterior wall of the aneurysm. MR/MR MRCP [id number] IMPRESSION: 1. Distal pancreatic tail mass is poorly visualized by MRI. Mass measures 1.9 cm and corresponds to the abnormality seen on CT. 2. No common bile duct dilatation. 3. Numerous hepatic metastases. 4. Small RIGHT pleural effusion.
[2019-07-26 07:14] LABS: Blood Gas Sample Site RRAD
--- NOTE | 2019-07-26 08:32 | CT_ITS ---
WS: [id number] CT HEAD NONCONTRAST HISTORY: r/o mets TECHNIQUE: Contiguous axial imaging performed through the brain in 2.5 mm imaging. Bone and soft tiss ue windows. Sagittal and coronal reformats reviewed. All CT scans at [facility] use at ast one of these dose optimization techniques: automated exposure control; mA and/or kV adjustment pe r patient size (includes targeted exams where dose is matched to clinical indication); or iterative r econstruction. DLP: 887.34 mGy.cm COMPARISON: None available. No acute intracranial hemorrhage, midline shift or mass effect. Mild atrophy with severe decreased attenuation in the periventricular white matter. Confluent decreas ed attenuation but most significant around the occipital horns. Yuen-white matter differentiation is otherwise intact. No mass identified on this unenhanced study. No midline shift. Ventricles: Normal size with no hydrocephalus. No inferior displacement of the cerebellar tonsils. Paranasal sinuses: As visualized are clear. Mastoid air cells: Well pneumatized. Calvarium and scalp: Skull is intact with no soft tissue edema or swelling. Scattered atherosclerotic plaque through the carotid arteries. CT/CT head wo con* [id number] IMPRESSION: 1. No intracranial hemorrhage. 2. Severe chronic white matter ischemic disease. 3. Cannot exclude metastatic disease on this unenhanced head CT. For further e valuation of metastatic disease consider MRI with contrast if there are no cont raindications.
[2019-07-26] MEDS: metoprolol tartrate 25 mg Tablet PO ×2 (09:21→17:41)
[2019-07-26] MEDS: morphine 4 mg/mL SDV 1 mL 1 MG IVP ×3 (09:22→21:28)
[2019-07-26] MEDS: amiodarone 200 mg Tablet PO (09:22)
[2019-07-26] MEDS: enoxaparin 60 mg/0.6 mL Syringe 50 MG SUBCUT ×2 (09:23→21:28)
[2019-07-26 09:49] LABS: Carcinoembryonic Antigen 7.1 ng/mL (0.0-4.7)
--- NOTE | 2019-07-26 13:27 | PC.NURSE ---
Patient resting in bed, SPO2 decreased at this time to 86%, O2 @ 2l/nc applied at this time. lung sounds remain clear and slightly diminished. MMorgan RN
--- NOTE | 2019-07-26 16:41 | P.PN_ITS ---
Subjective Subjective: Interval history: Admitted overnight. H&P and Labs noted. This morning he is on Cardizem of 10 with HR in 60s. Tolerating BRAT diet well. He denies of having any nausea or vomiting at present. Complains of mild headache. Medications: Reviewed: Yes Vitals/I&O/Wt Last Vital Signs Temp 98.3 F 07/26/19 12:00 Pulse 84 07/26/19 14:00 Resp 16 07/26/19 14:46 BP 104/64 07/26/19 14:00 Pulse Ox 100 07/26/19 14:46 07/26/19 07/26/19 07/26/19 06:59 14:59 22:59 Intake Total 1064 / 1107.500 761.833 / 761.833 Balance 1064 / 1107.500 761.833 / 761.833 Weight last 48 hrs Weight 49.895 kg Physical Exam Narrative: EXAM NARRATIVE: General: No acute distress, AO x3 HEENT: PERRLA, pupils bilaterally equal and reactive, icteric, pallor present Chest: Normal vesicular breath sounds, no added sounds, equal good air entry bilaterally CVS: S1-S2 regular, no murmurs, no tachycardia, no gallops, no rubs Abdomen: Soft, tender hepatomegaly present. Course,bowel sounds present Neuro: No focal deficits, no facial deformity, AO x3, power 5/5 in all limbs Data : 07/27/19 04:43 07/27/19 04:43 Micro: Microbiology 07/25/19 17:16 Blood Culture - Preliminary Blood SPECIMEN COLLECTED 07/25/19 17:10 Blood Culture - Preliminary Blood SPECIMEN COLLECTED A&P Assessment and plan (1) Atrial fibrillation with RVR: Status: Acute Code(s): I48.91 - Unspecified atrial fibrillation (2) Pancreatic mass: Status: Acute Code(s): K86.89 - Other specified diseases of pancreas (3) Liver mass: Status: Acute Code(s): R16.0 - Hepatomegaly, not elsewhere classified (4) Subtherapeutic anticoagulation: Status: Acute Code(s): Z51.81 - Encounter for therapeutic drug level monitoring; Z79.01 - retirement (current) use of anticoagulants (5) Smoker: Status: Acute Code(s): F17.200 - Nicotine dependence, unspecified, uncomplicated (6) Abnormal liver enzymes: Status: Acute Code(s): R74.8 - Abnormal levels of other serum enzymes (7) Depression: Status: Acute Code(s): F32.9 - Major depressive disorder, single episode, unspecified Additional A&P Information A. fib with RVR He is on Cardizem drip right now. Patient has not been taking his home dose of amiodarone or Lopressor. Start him back on home medications. Titrate Cardizem drip as per the heart rate keeping around 100 bpm. Patient used to be on Coumadin before but was stopped in [facility] due to some reason. Overnight patient was started on Lovenox full dose. We will try to get document s from [facility] regarding reason of stopping the anticoagulation. For now we will continue the anticoagulation. We will get physical therapy evaluation. Most likely will send home patient on no anticoagulation given the recurrent falls. No PE found on CTA chest Pancreatic mass with possible liver mets: Leading to abnormal liver enzymes: Generalized weakness with extensive weight loss, cachectic appearance, dysphagia Active smoker, drinks 2-[address] scan is showing pancreatic mass with possible liver metastases has abnormal liver enzymes with high bilirubin MRCP awaited. C/d/w Dr. Mckenzie: Given the co-morbidities and images patient at least has stage 4 disease and at this time hospice is most favourable options. Will discuss with patient. On discussion with pt he wants to discuss with daughter. Daughter is not available to talk today. Will give a call again tomorrow. Avance to GI soft and see how he does. AAA 3.6 cm: He is an active smoker Ultrasound every 6 months High risk for bleed with active anticoagulation Continue beta-radha Care coordination consult because of social dynamics: Patient lives alone, his friend Lavinia takes care of him and takes him 2 different doctors appointments, she prefers to be notified in case of emergency and transfer her phone number is [phone] Next of kin daughter her name is Josey she is in [place] phone number [phone] Active smoker: He has been counseled extensively, DVT prophylaxis: Currently on Lovenox full dose GI prophylaxis: Protonix Full code Patient wants a trial of CPR with intubation Can plan to transfer to ICU once off Cardizem drip. Attestations Medical Necessity Statement*: Needs controlled hospitalization for management of A. fib with RVR. Time Spent in Patient Care: Greater than 35 minutes Coding Level of Care Code Acute International Student Advisor for Chg Fwd Diagnoses Atrial fibrillation with RVR I48.91 Pancreatic mass K86.89 Liver mass R16.0 Subtherapeutic anticoagulation Z51.81; Z79.01 Smoker F17.200 Abnormal liver enzymes R74.8 Depression F32.9
[2019-07-26] MEDS: ondansetron 2 mg/ML SDV 2 mL 4 MG IVP (17:10)
[2019-07-26] MEDS: TRAMadol 50 mg Tablet PO (17:41)
--- NOTE | 2019-07-26 18:22 | PC.NURSE ---
transferred to MRI at 1505 escorted by this nurse, returned from testing at 1625, tolerated procedure well. Jayy RN
--- NOTE | 2019-07-26 22:18 | USCV_ITS ---
J Luis James Age: 74 Gender: M : 1945 Exam Date: 07/26/2019 06:27 Ordering Phys: Manuel Roach MD Technologist: Beau Robertson [place] [facility] [place]: AFIB AO PROS BP: 130 / 72 HR: 103 Rhythm: Atrial fibrillation Technical Quality: Poor MEASUREMENTS (Male / Female) Normal Values 2D ECHO LV Diastolic Diameter PLAX 5.1 cm 4.2 - 5.9 / 3.9 - 5.3 cm LV Systolic Diameter PLAX 2.6 cm IVS Diastolic Thickness 1.0 cm 0.6 - 1.0 / 0.6 - 0.9 cm IVS Systolic Thickness 1.5 cm LVPW Diastolic Thickness 1.1 cm 0.6 - 1.0 / 0.6 - 0.9 cm LVPW Systolic Thickness 1.2 cm LVOT Diameter 2.0 cm LV Ejection Fraction 2D Teich 79.2 % LV Ejection Fraction MOD 2C 51.5 % LV Ejection Fraction 2C AL 49.8 % LA Diameter 5.6 cm LA Width 5.3 cm LA Height 7.1 cm RA Width 4.5 cm RA Height 6.1 cm M-MODE LV Diastolic Diameter MM 5.9 cm 4.2 - 5.9 / 3.9 - 5.3 cm LV Systolic Diameter MM 4.3 cm LV Ejection Fraction MM Teich 51.8 % IVS Diastolic Thickness MM 1.0 cm 0.6 - 1.0 / 0.6 - 0.9 cm IVS Systolic Thickness MM 1.3 cm LVPW Diastolic Thickness MM 1.4 cm 0.6 - 1.0 / 0.6 - 0.9 cm LVPW Systolic Thickness MM 1.5 cm RV Diastolic Diameter MM 1.5 cm Aortic Annulus Diameter 3.8 cm LA Ao Ratio MM 1.5 MV E Point Septal Separation 1.3 cm DOPPLER AV Peak Velocity 178.0 cm/s LVOT Peak Velocity 90.0 cm/s AV Area Cont Eq vti 1.9 cm squared AV Area Cont Eq pk 1.7 cm squared MV Area PHT 2.8 cm squared Mitral E to A Ratio 3.7 MV E' Velocity 10.0 cm/s Mitral E to MV E' Ratio 34.4 Mitral E to LV E' Lateral Ratio 34.8 Mitral E to LV E' Septal Ratio 34.4 TR Peak Velocity 350.0 cm/s TR Peak Gradient 49.1 mmHg TV Peak E Velocity 316.0 cm/s Right Atrial Pressure 3.0 mmHg Pulmonary Artery Systolic Pressu 52.0 mmHg FINDINGS Left Ventricle The ventricle is seen adequately in the apical view only. There appears to be normal left ventricular function. The rhythm is atrial fibrillation. This reduces the sensitivity. Diastolic function cannot be determined due to the rhythm. There is mild left ventricular hypertrophy. No obvious wall motion disturbances. Ejection fraction estimated at 55 to 60%. Right Ventricle Normal right ventricular size and systolic function. Moderate pulmonary hypertension, RVSP 52 mmHg. Right Atrium Moderately increased right atrial size. Left Atrium Moderately increased left atrial size. Mitral Valve Structurally normal mitral valve. There is at least moderately severe and perhaps severe mitral regurgitation. No mitral stenosis. Aortic Valve Aortic valve is probably prosthetic. It is poorly seen. There is no obvious stenosis or regurgitation. Tricuspid Valve Structurally normal tricuspid valve. There is at least moderate and perhaps moderately severe tricuspid regurgitation Pulmonic Valve Pulmonic valve not well visualized. Pericardium Normal pericardium without effusion. Aorta Normal ascending aorta dimension. CONCLUSIONS The ventricle is seen adequately in the apical view only. There appears to be normal left ventricular function. The rhythm is atrial fibrillation. This reduces the sensitivity. Diastolic function cannot be determined due to the rhythm. There is mild left ventricular hypertrophy. No obvious wall motion disturbances. Ejection fraction estimated at 55 to 60%. Normal right ventricular size and systolic function. Moderate pulmonary hypertension, RVSP 52 mmHg. Moderately increased right atrial size. Moderately increased left atrial size. Structurally normal mitral valve. There is at least moderately severe and perhaps severe mitral regurgitation. No mitral stenosis. Aortic valve is probably prosthetic. It is poorly seen. There is no obvious stenosis or regurgitation. Structurally normal tricuspid valve. There is at least moderate and perhaps moderately severe tricuspid regurgitation. There are no prior echocardiogram studies to compare. Dr. Jose Armando Booth MD (Electronically Signed) Final Date: 26 July 2019 17:25 S
[2019-07-27] VITALS (26 sets, daily range): BP systolic 80–118; BP diastolic 56–83; PULSE 96–132; RESP 1–21; TEMP 36.2–36.8; O2SAT 85–100
[2019-07-27] MEDS: morphine 4 mg/mL SDV 1 mL 1 MG IVP ×4 (03:47→21:03)
[2019-07-27 04:38] LABS: Bilirubin Urine 1+ (NEGATIVE); Blood Urine Neg (Negative); Glucose Urine UA Norm (Normal); Ketones Urine Negative (Negative); Leukocyte Esterase Urine Negative (Negative); Nitrate Urine Negative (Negative); Protein Urine Trace (Negative); Urine Appearance Clear (CLEAR); Urine Color Yellow (Yellow); Urobilinogen Urine 8 mg/dL (Negative); pH Urine 5 (5-7)
[2019-07-27 04:46] LABS: Bacteria Urine TRACE; Calcium Oxalate Crystals Urine 0-4 /hpf; RBC Urine 0-4 /hpf (0-2)
[2019-07-27 04:47] LABS: Add Urine Culture? No; Hyaline Casts Urine 0-4
[2019-07-27 05:12] LABS: Basophils % 0.1 %; Eosinophils % 0.1 %; Hematocrit 36.2 % (42.0-52.0); Hemoglobin 11.9 g/dL (11.7-16.6); Lymphocytes # 0.6 10^3/uL (0.8-4.8); Lymphocytes % 4.6 %; Mean Corpuscular HGB Conc 32.9 g/dL (30.0-36.0); Mean Corpuscular Hemoglobin 32.6 pg (28.0-34.0); Mean Corpuscular Volume 99.2 fL (80-94); Mean Platelet Volume 11.8 fL (7.4-10.4); Monocytes # 1.2 10^3/uL (0.2-0.9); Monocytes % 9.2 %; Neutrophils % 85.3 %; Nucleated Red Blood Cells % 0 %; Platelet Count 157 10^3/cmm (130-400); Red Blood Count 3.65 10^6/uL (4.1-5.3); Red Cell Distribution Width 15.9 % (12.1-15.1); White Blood Count 12.9 10^3/uL (4.0-10.0)
[2019-07-27 05:33] LABS: Alanine Aminotransferase 36 U/L (0-41); Albumin Level 3.5 g/dL (3.5-5.2); Alkaline Phosphatase 371 IU/L (40-130); Anion Gap 14.4 (5-19); Aspartate Amino Transferase 40 U/L (0-40); Blood Urea Nitrogen 25 mg/dL (8-23); Calcium 9.5 mg/dL (8.5-10.5); Carbon Dioxide 24 mmol/L (22-29); Chloride 101 mmol/L (98-107); Glucose 119 mg/dL (74-106); Potassium 4.4 mmol/L (3.5-5.1); Sodium 135 mmol/L (136-145); Total Bilirubin 2.1 mg/dL (0.15-1.2); Total Protein 6.5 g/dL (6.6-8.7)
[2019-07-27 06:03] LABS: Estmated Average Glucose 91; Hemoglobin A1C 4.8 % (4.0-6.0)
[2019-07-27] MEDS: TRAMadol 50 mg Tablet PO (07:30)
[2019-07-27] MEDS: sodium chloride 0.9% 1,000 ML 30 ML IV ×2 (07:31→22:16)
[2019-07-27] MEDS: amiodarone 200 mg Tablet PO ×2 (07:36→17:01)
[2019-07-27] MEDS: metoprolol tartrate 25 mg Tablet PO ×2 (07:36→16:59)
[2019-07-27] MEDS: sennosides-docusate Tablet 1 TAB PO (08:22)
[2019-07-27] MEDS: sodium chloride 0.9% 500 ML 999 ML IV (09:20)
[2019-07-27] MEDS: ondansetron 2 mg/ML SDV 2 mL 4 MG IVP ×3 (09:57→21:03)
[2019-07-27] MEDS: enoxaparin 60 mg/0.6 mL Syringe 50 MG SUBCUT ×2 (09:58→21:04)
[2019-07-27] MEDS: HYDROcodone-acetaminophen 5-325 mg Tablet 1 TAB PO ×3 (09:59→21:03)
--- NOTE | 2019-07-27 12:26 | PC.NURSE ---
notified Dr Lyle of current B/P / with a mean of 80, P 98, R 14, SPO2 94% with O2 @ 2L/min per N/C, t 98.0 tympanic. MMorgan RN
--- NOTE | 2019-07-27 17:31 | PC.NURSE ---
family here in patient room asking to speak to , Dr Tyson contacted about request and that familyhad some questions for him. He stated he would be here in a few minutes to talk with them. MMorgan RN
--- NOTE | 2019-07-27 17:38 | PC.NURSE ---
Dr Tyson here and spoke with patient and family. MMorgan RN
--- NOTE | 2019-07-27 18:07 | PM.PN ---
Subjective Subjective: Interval history: No acute events overnight. Patient has been off Cardizem since noon yesterday. Heart rate has mostly been below 100 bpm. Patient has tolerated GI soft diet well. He denies of having any nausea, vomiting at present. States he has been having abdominal pain and pain medication is not enough. Denies of having any dizziness, palpitations, shortness of breath or chest pain. Medications: Reviewed: Yes Vitals/I&O/Wt Last Vital Signs Temp 97.8 F 07/27/19 16:00 Pulse 129 H 07/27/19 18:00 Resp 16 07/27/19 18:00 BP 118/82 07/27/19 18:00 Pulse Ox 97 07/27/19 18:00 07/27/19 07/27/19 07/27/19 06:59 14:59 22:59 Intake Total 1457 / 1457 360 / 1817 Output Total 900 / 900 400 / 400 Balance -900 / -18.167 1457 / 1457 -40 / 1417 Weight last 48 hrs Weight 55.792 kg Physical Exam Narrative: EXAM NARRATIVE: General: No acute distress, AO x3, chachectic HEENT: PERRLA, pupils bilaterally equal and reactive, icteric, pallor present Chest: Normal vesicular breath sounds, no added sounds, equal good air entry bilaterally CVS: S1-S2 irregular, no murmurs, no tachycardia, no gallops, no rubs Abdomen: Soft, tender hepatomegaly present. Course,bowel sounds present Neuro: No focal deficits, no facial deformity, AO x3, power 5/5 in all limbs Urinary Catheter Management^: Zelaya: Cath Placed During This Visit: no Data : 07/27/19 04:43 07/27/19 04:43 Micro: Microbiology 07/25/19 17:16 Blood Culture - Preliminary Blood NEGATIVE TO DATE 07/25/19 17:10 Blood Culture - Preliminary Blood NEGATIVE TO DATE A&P Assessment and plan (1) Atrial fibrillation with RVR: Status: Acute Code(s): I48.91 - Unspecified atrial fibrillation (2) Pancreatic mass: Status: Acute Code(s): K86.89 - Other specified diseases of pancreas (3) Liver mass: Status: Acute Code(s): R16.0 - Hepatomegaly, not elsewhere classified (4) Subtherapeutic anticoagulation: Status: Acute Code(s): Z51.81 - Encounter for therapeutic drug level monitoring; Z79.01 - long term care social worker (current) use of anticoagulants (5) Smoker: Status: Acute Code(s): F17.200 - Nicotine dependence, unspecified, uncomplicated (6) Abnormal liver enzymes: Status: Acute Code(s): R74.8 - Abnormal levels of other serum enzymes (7) Depression: Status: Acute Code(s): F32.9 - Major depressive disorder, single episode, unspecified Additional A&P Information Pancreatic mass with possible liver mets: C/d/w Dr. Mckenzie yesterday. Most likely stage [address] Mckenzie hospice is the most likely option as patient is a poor candidate at baseline due to multiple comorbidities and severe protein energy malnutrition and pancreatic cancer is very aggressive and likely poor outcome. Patient states he understands everything and verbalizes understanding but wants to discuss everything in presence of daughter. Spoke to daughter on phone. She verbalizes understanding and wants to take patient home to [place] with hospice. Will discuss with CC regarding possibilities of hospice at [place] for pain. A. fib with RVR C/w home dose of lopressor but will increase Amio to 200 mg BID. HR mildly elevated most likely due to pain. Bolus 500 cc f/b NS @ 75 cc/hr AAA 3.6 cm: He is an active smoker Ultrasound every 6 months High risk for bleed with active anticoagulation Continue beta-radha Active smoker: He has been counseled extensively, DVT prophylaxis: Currently on Lovenox full dose GI prophylaxis: Protonix Full code Transfer to CSU. Attestations Medical Necessity Statement*: Needs continued hospitalization for Afib and pancreatic cancer Time Spent in Patient Care: 16 - 35 minutes Coding Level of Care Code Acute Supervisor Tan Room for Chg Fwd Diagnoses Atrial fibrillation with RVR I48.91 Pancreatic mass K86.89 Liver mass R16.0 Subtherapeutic anticoagulation Z51.81; Z79.01 Smoker F17.200 Abnormal liver enzymes R74.8 Depression F32.9
[2019-07-28] VITALS (14 sets, daily range): BP systolic 88–118; BP diastolic 62–93; PULSE 110–134; RESP 3–17; TEMP 36.5–36.8; O2SAT 93–98; BMI 16.0
[2019-07-28] MEDS: HYDROcodone-acetaminophen 5-325 mg Tablet 1 TAB PO ×2 (03:48→14:55)
[2019-07-28] MEDS: morphine 4 mg/mL SDV 1 mL 1 MG IVP ×2 (03:48→11:16)
[2019-07-28] MEDS: TRAMadol 50 mg Tablet PO (07:31)
[2019-07-28] MEDS: ondansetron 2 mg/ML SDV 2 mL 4 MG IVP ×3 (07:31→14:00)
[2019-07-28] MEDS: amiodarone 200 mg Tablet PO ×2 (07:32→12:39)
--- NOTE | 2019-07-28 07:46 | PC.NURSE ---
Patient given prn zofran for c/o nausea, indigestion-like symptoms, belching. Took po meds right after this given with 60ml H20. within a few minutes started vomiting bile and liquid of 300ml fluids along with medications that he just took: amiodarone and tramadol. MMorgan RN
[2019-07-28] MEDS: promethazine 25 mg/mL SDV 1 mL 12.5 MG IM (08:57)
[2019-07-28] MEDS: metoprolol tartrate 1 mg/1 mL SDV 5 mL 5 MG IV (09:06)
[2019-07-28] MEDS: dextrose 5%-sod chloride 0.9% 1,000 ML 125 ML IV (09:06)
--- NOTE | 2019-07-28 09:20 | PC.NURSE ---
500 ml normal saline bolus administered out of remaining volume in current 1000ml bag at this time. MMorgan RN
--- NOTE | 2019-07-28 09:35 | PC.NURSE ---
patient remains nauseated , emesis turned from a yellowish bilke color to a greenish montague colored, not strongly odiferous. MMorgan RN
--- NOTE | 2019-07-28 09:48 | PC.NURSE ---
patient has stopped vomiting and stomach is more settled, oral care provided for patient, getting drowsy so assisted back to bed with HOB up 45 degrees, call light in reach. MMorgan RN
--- NOTE | 2019-07-28 12:28 | PM.DCS ---
Discharge Providers Date of Admission: 07/25/19 19:51 Date of Discharge: 07/28/19 Attending Provider at Admission: Manuel Roach MD Attending Provider at Discharge: Chavez Tyson MD Primary Care Provider: Horacio Bains DO Diagnoses at Discharge Discharge Diagnosis (1) Atrial fibrillation with RVR: Status: Acute (2) Pancreatic mass: Status: Acute (3) Liver mass: Status: Acute (4) Subtherapeutic anticoagulation: Status: Acute (5) Smoker: Status: Acute (6) Abnormal liver enzymes: Status: Acute (7) Depression: Status: Acute Reason for Visit Reason for Visit: Reason For Visit: PANCREATIC MASS Hospital Course Discharge Summary: J Luis James is a 74 year old male who carries diagnosis of atrial fibrillation, aortic valve replacement, came in on July 25 with a chief complaint of generalized weakness. Patient was stating that for last 3 to 4 months he has not been able to eat well, he was feeling nauseous on every attempt to eat, he decrease his p.o. intake because of this discomfort, he has lost significant weight, he has been becoming weaker and depressed.He lives alone and is struggling to carry his daily activities on his own, recently he has been using support of velazquez to walk around in his house. In ER patient was found to be in A. fib with rapid ventricular rate so was admitted to the ICU for Cardizem drip. Patient stated that he has not been taking his oral medications for last 2 to 3 weeks because of nausea. Patient was started on his oral home medications and by next morning he was of the Cardizem drip. CT abdomen was done in the ER which showed a pancreatic mass of 1.5 cm with possible liver metastases up to 3 cm, AAA 3.6 cm and bilateral lung nodules with pleural effusion. Given the findings case was discussed with oncologist Dr. Mckenzie. Considering his poor functional status and poor social set up due to multiple comorbidities and severe protein energy malnutrition patient was found to be not a good candidate for chemotherapy or further evaluation for possible stage IV pancreatic cancer. Findings and concerns were discussed with patient and her next of kin daughter Ms. Dowling who lives in [place]. They both verbalized the understanding and hence patient is being discharged in a hemodynamically stable condition with hospice to be set up at home in [place]. Given the new findings anticoagulation was further discussed with the patient because of atrial fibrillation. Benefits and risk factors of being on anticoagulation was discussed and patient stated that for now he would like to continue being on warfarin and would like to have repeat blood work every week. CODE STATUS was also discussed with the patient given the new disease and he stated going forward he would want to be DNR/DNI. Physical Exam Narrative: EXAM NARRATIVE: General: No acute distress, AO x3, chachectic HEENT: PERRLA, pupils bilaterally equal and reactive, icteric, pallor present Chest: Normal vesicular breath sounds, no added sounds, equal good air entry bilaterally CVS: S1-S2 irregular, no murmurs, no tachycardia, no gallops, no rubs Abdomen: Soft, tender hepatomegaly present. Course,bowel sounds present Neuro: No focal deficits, no facial deformity, AO x3, power 5/5 in all limbs Urinary Catheter Management^: Zelaya: Cath Placed During This Visit: no Discharge Data Data Completed and Pending: Completed Studies During Hospitalization Category Date Time Status CT angio chest w abd pel w con Stat Cat Scan 07/25/19 17:[address] head wo con* 7 0450 Routine Cat Scan 07/26/19 08:32 Completed XR chest 1V kemi ble [id number] Stat Exams 07/25/19 16:42 Completed MR MRCP [id number] Rou pa MRI 07/26/19 07:00 Completed CV echo complete* [id number] Routine Ultrasound 07/26/19 22:18 Completed Pending at discharge Category Date Time Status Blood Culture Sta t Lab 07/25/19 17:16 Results Vitals: Last Vital Signs Temp 97.9 F 07/28/19 09:29 Pulse 128 H 07/28/19 09:29 Resp 15 07/28/19 11:16 BP 107/82 07/28/19 09:29 Pulse Ox 98 07/28/19 11:16 Discharge Plan Discharge Patient Disposition: Hospice - Home Condition: Fair Prescriptions: New amiodarone 200 mg Tablet 200 mg PO BIDWM Qty: 60 RF: 0 metoprolol tartrate 25 mg Tablet 25 mg PO BID Qty: 60 RF: 0 warfarin 5 mg tablet 5 mg PO DAILY Qty: 14 RF: 0 Discontinued furosemide 40 mg tablet 40 mg PO DAILY RF: 0 atorvastatin 20 mg tablet 20 mg PO DAILY RF: 0 amiodarone 200 mg tablet 200 mg PO DAILY RF: 0 metoprolol tartrate 25 mg tablet 25 mg PO DAILY RF: 0 Discharge Orders: Discharge Order (Routine); Ordered 07/28/19 Ordered By: Chavez Tyson Other Ambulatory Orders: Prothrombin Time INR (Routine) Timeframe: 1 Week Facility: [facility] - Location: Lab - Main Lab Ordered By: Chavez Tyson Discharge Diet: Advance as tolerated, GI Soft and Full LIquid Discharge Activity: Resume usual activity Patient Instructions: Metoprolol (By mouth), Warfarin (By mouth), Amiodarone (By mouth), Soft Diet Discharge Date/Time: 07/28/19 15:18 Discharge Attestations Time Spent in Discharge Care*: greater than 30 min Specific Discharge Activities: Specific discharge activities: educating patient, discussing with high risk case manager/social workers/dc planners, documenting/other paperwork and evaluating patient/reviewing data Status at Discharge: Cognitive status at discharge: cognitively intact, Behavioral status at discharge: cooperative, Functional status at discharge: bed bound Overall status at discharge: patient has a new baseline Quality Metrics Clinical Quality Measures During this hospital stay, did patient experience: None Coding Level of Care Code Acute [place] Worker for Chg Fwd Diagnoses Atrial fibrillation with RVR I48.91 Pancreatic mass K86.89 Liver mass R16.0 Subtherapeutic anticoagulation Z51.81; Z79.01 Smoker F17.200 Abnormal liver enzymes R74.8 Depression F32.9
--- NOTE | 2019-07-28 12:57 | PC.SOCIAL ---
Pg 2 of IMM Pg 2 of IMM was explained to and signed by patient, copy was provided, and form placed in chart. Initialed, dated, and timed copy in chart.
--- NOTE | 2019-07-28 13:18 | PC.CHAP ---
Pastoral Care Encounter/Spiritual Assessment Type of Contact [] Declined assistant attorney general visit [] Patient/Family/Request visit [] Outpatient visit [] Follow-up visit [] Physician referral [] Code/Alert [] Routine visit [] Staff referral [] Actively dying [] Patient sleeping [] Family support [] [] Out of room [] Palliative care [] [] Receiving care in room [] Pre-surgical visit [] Trauma [] Long length of stay [] ICU visit [] Other: Relational/Emotional Strength [] Patient feels connected with others/family/visitors/staff [] Distress [] Loneliness/isolation [] Abandonment Spirituality of Patient [] Person of Linda [] Attends Oriental Orthodox of their Linda [] Believes in Prayer [] Reads Bible or Roman Catholic materials [] There are Spiritual issues to be addressed Real Estate Legal Assistant Interventions [] Prayer [] Active listening [] Non-anxious presence [] Spiritual/emotional support [] Crisis/trauma care [] Spiritual counseling [] Bereavement support [] Provided bereavement packet [] Provided Bible/devotional materials [] Provided toy/stuffed animal, coloring book to patient or family member [] Completed spiritual assessment [] Provided Communion [] Anointing/[place] [] Salvation [] Other: Impact on Illness or Injury [] Angry [] Fearful [] Anxious [] Often cries [] Exhaustion [] Unable to work [] Unable to attend anglican [] Unable to walk/stand [] Unable to read [] Unable to drive [] Unable to eat/drink [] Unable to sleep [] Unable to be with family [] Other: Summary The patieht was sleeping. Time spent with patient
== END 2019-07-28 15:18 | disposition hospice, home (50) | DRG 436 ==
LOC: ER 19:58 → ICU 21:09
PROVIDERS: Emergency Medicine; Admitting Provider Internal Medicine; Emergency Provider Emergency Medicine; Family Provider Family Medicine; PCP Family Medicine; Visit Provider Student in an Organized Health Care Education/Training Program
DX: C25.9 Malignant neoplasm of pancreas, unspecified (principal); R64 Cachexia; Z68.1 Body mass index [BMI] 19.9 or less, adult; C78.7 Secondary malignant neoplasm of liver and intrahepatic bile duct; I48.91 Unspecified atrial fibrillation; I25.10 Atherosclerotic heart disease of native coronary artery without angina pectoris; E86.0 Dehydration; Z66 Do not resuscitate; I11.0 Hypertensive heart disease with heart failure; R91.8 Other nonspecific abnormal finding of lung field; I50.9 Heart failure, unspecified; F32.9 Major depressive disorder, single episode, unspecified; I71.4 Abdominal aortic aneurysm, without rupture; I73.9 Peripheral vascular disease, unspecified; Z95.1 Presence of aortocoronary bypass graft; F17.210 Nicotine dependence, cigarettes, uncomplicated; Z79.01 Long term (current) use of anticoagulants; Z95.2 Presence of prosthetic heart valve
CPT/HCPCS: 12345; 36415; 36600; 51702; 51798; 70450; 71045; 71275; 74177; 74181; 80053; 81001; 82378; 82803; 83036; 83605; 83690; 83735; 83880; 84484; 85025; 85378; 85610; 87040; 87804; 93005; 93306; 94640; 96360; 96361; 96372; 96374; 96375; 97161; 97530; 99283; J1650; J2270; J2405; J2550; J2930; J3490; J7030; J7040; Q9967